=== PATIENT | female | born 2000 | race Caucasian/White ===

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

== ENCOUNTER → 2025-04-16 | Outpatient (CLI) | payer OTHER | LOC: LAB SHORT 17:11 → LAB 17:11 | DX: Z34.03 Encounter for supervision of normal first pregnancy, third trimester (principal) | CPT/HCPCS: 87081; 87150 ==